=== PATIENT | female | born 1980 | race African-American/Black ===

== ENCOUNTER 2017-03-07 22:49 | Emergency (ER) | payer MEDICAID ==
--- NOTE | 2017-03-08 00:15 | EDM.PDOC ---
ED HPI GENERAL MEDICAL PROBLEM - General Chief Complaint: Upper Extremity Injury/Pain Stated Complaint: RT WRIST IS SPRAIN Time Seen by Provider: 03/08/17 00:13 - History of Present Illness INITIAL COMMENTS - FREE TEXT/NARRATIVE: HISTORY AND PHYSICAL: History of present illness: Patient 36-year-old black female with right wrist pain she denies trauma denies other concern this is intermittent it is not worse with movement there is no clear palliative or aggravating factors. Review of systems: As per history of present illness and below otherwise all systems reviewed and negative. Past medical history: As per history of present illness and as reviewed below otherwise noncontributory. Surgical history: As per history of present illness and as reviewed below otherwise noncontributory. Social history: No reported history of drug or alcohol abuse. Family history: As per history of present illness and as reviewed below otherwise noncontributory. Physical exam: HEENT: Atraumatic, normocephalic, pupils reactive, negative for conjunctival pallor or scleral icterus, mucous membranes moist, throat clear, neck supple, nontender, trachea midline. Lungs: Clear to auscultation, breath sounds equal bilaterally, chest nontender. Heart: S1S2, regular, negative for clicks, rubs, or JVD. Abdomen: Soft, nondistended, nontender. Negative for masses or hepatosplenomegaly. Negative for costovertebral tenderness. Pelvis: Stable nontender. Genitourinary: Deferred. Rectal: Deferred. Extremities: Atraumatic, negative for cords or calf pain. Neurovascular unremarkable. Neuro: Awake, alert, oriented. Cranial nerves II through XII unremarkable. Cerebellum unremarkable. Motor and sensory unremarkable throughout. Exam nonfocal. Diagnostics: X-ray right wrist CBC uric acid Therapeutics: Velcro splint Impression: #1 wrist pain Definitive disposition and diagnosis as appropriate pending reevaluation and review of above. Right Wrist Pain Score (Numeric/FACES): 9 - Related Data Allergies Allergy/AdvReac Type Severity Reaction Status Date / Time No Known Allergies Allergy Verified 08/02/14 07:40 Home Meds: Home Meds Albuterol [Proair HFA] 2 hr INH 6XDAY PRN 08/02/14 [History] Past Medical History - Past Health History Medical/Surgical History: Denies Medical/Surgical History Social & Family History - Family History Family Medical History: Noncontributory - Tobacco Use Smoking Status *Q: Current Every Day Smoker Years of Tobacco use: 10 Packs/Tins Daily: 1 - Alcohol Use Days Per Week of Alcohol Use: 0 - Recreational Drug Use Recreational Drug Use: No Review of Systems - Review of Systems Review Of Systems: ROS reveals no pertinent complaints other than HPI. ED EXAM, GENERAL - Physical Exam Exam: See Below (See dictation) Course - Vital Signs Last Recorded V/S: Last Vital Signs Temp 36.5 C 03/07/17 22:55 Pulse 104 H 03/07/17 22:55 Resp 18 03/07/17 22:55 BP 121/72 03/07/17 22:55 Pulse Ox 99 03/07/17 22:55 - Orders/Labs/Meds Orders: Active Orders 24 hr Category Date Time Status Wrist Comp Min 3V Rt [CR] Stat Exams 03/07/17 23:11 Taken Labs: Laboratory Tests 03/07/17 03/07/17 Range/Units 23:15 23:15 WBC 8.38 (4.0-11.0) K/uL RBC 4.58 (4.30-5.90) M/uL Hgb 13.5 (12.0-16.0) g/dL Hct 38.2 (36.0-46.0) % MCV 83.4 (80.0-98.0) fL MCH 29.5 (27.0-32.0) pg MCHC 35.3 (31.0-37.0) g/dL RDW Std Deviation 38.7 (28.0-62.0) fl RDW Coeff of Ivy 13 (11.0-15.0) % Plt Count 306 (150-400) K/uL MPV 9.50 (7.40-12.00) fL Add Manual Diff YES Neutrophils % (Manual) 47 L (48.0-80.0) % Lymphocytes % (Manual) 42 H (16.0-40.0) % Monocytes % (Manual) 6 (0.0-15.0) % Eosinophils % (Manual) 5 (0.0-7.0) % Nucleated RBC % 0.0 /100WBC Absolute Seg Neuts 3.9 Lymphocytes # (Manual) 3.5 Monocytes # (Manual) 0.5 Eosinophils # (Manual) 0.4 Nucleated RBCs # 0 K/uL Uric Acid 7.0 H (2.1-6.2) mg/dL Departure - Departure Time of Disposition: 00:14 Disposition: Home, Self-Care 01 Condition: Good Clinical Impression: Wrist pain - Discharge Information Referrals: PCP,None [Primary Care Provider] - Additional Instructions: The following information is given to patients seen in the emergency department who are being discharged to home. This information is to outline your options for follow-up care. We provide all patients seen in our emergency department with a follow-up referral. The need for follow-up, as well as the timing and circumstances, are variable depending upon the specifics of your emergency department visit. If you don't have a primary care physician on staff, we will provide you with a referral. We always advise you to contact your personal physician following an emergency department visit to inform them of the circumstance of the visit and for follow-up with them and/or the need for any referrals to a consulting specialist. The emergency department will also refer you to a specialist when appropriate. This referral assures that you have the opportunity for followup care with a specialist. All of these measure are taken in an effort to provide you with optimal care, which includes your followup. Under all circumstances we always encourage you to contact your private physician who remains a resource for coordinating your care. When calling for followup care, please make the office aware that this follow-up is from your recent emergency room visit. If for any reason you are refused follow-up, please contact the [facility] emergency department at and asked to speak to the emergency department charge nurse. [facility] Professional Building [address] [place] [address], [address] [place] [address] Motrin/Tylenol as directed Velcro splint as directed call to schedule appointment with orthopedic clinic above return as needed as discussed - My Orders Last 24 Hours: My Active Orders 03/07/17 23:11 Wrist Comp Min 3V Rt [CR] Stat - Assessment/Plan Last 24 Hours: My Active Orders 03/07/17 23:11 Wrist Comp Min 3V Rt [CR] Stat
[2017-03-08 00:31] VITALS: BP 115/57
--- NOTE | 2017-03-08 17:17 | CR ---
EXAM DATE: 03/07/17 PATIENT'S AGE: 36 Patient: CABRERA MCGEE Facility: [place], [place] Site . Site : [id number] Study: XRay Extremity wrist [id number]/6/[id number] 11:43:18 PM Ordering Physician: Doctor Franco Final Report: INDICATION: Pain and swelling. TECHNIQUE: Three views of the right wrist. COMPARISON: None. IMPRESSION: No fracture, subluxation or dislocation. No significant arthritic changes. Dictated by Tomasz Chandler MD @ 03/07/2017 11:59:51 PM Dictated by: Tomasz Chandler MD @ 03/07/2017 23:59:56 (Electronic Signature) Report Signed by Proxy. MARIANO
== END 2017-03-08 00:30 | disposition home or self-care (01) ==
LOC: MW.ED 22:49
DX: M25.531 Pain in right wrist (principal); F17.210 Nicotine dependence, cigarettes, uncomplicated
CPT/HCPCS: 36415; 73110-26-RT; 73110-RT; 84550; 85025; 99282; 99283